=== PATIENT | female | born 1945 | race Caucasian/White ===

== ENCOUNTER 2018-10-04 10:37 | Inpatient (IN) | payer MEDICARE, SELFPAY ==
[2018-09-20 12:50] VITALS: BMI 39.4
[2018-10-04] VITALS (14 sets, daily range): BP systolic 98–164; BP diastolic 50–82; PULSE 53–79; RESP 12–22; TEMP 35.6–36.9; O2SAT 9–100; BMI 41.8
--- NOTE | 2018-10-04 06:00 | DI.RAD.S_ITS ---
PROCEDURE: XR PELVIS 1-2V INDICATIONS: right PRIYANK TECHNIQUE: 1 view of the lower pelvis acquired. [facility] LATERAL HIP RIGHT, 07/28/2018, 9:04. [facility], CR, XR PELVIS W LATERAL HIP RT, 09/30/2016, 14:33. FINDINGS: Bones: Patient is status post right hip arthroplasty, with hardware components in expected positions. The hip joint appears congruent. The visualized bony structures appear intact. Soft tissues: Overlying postoperative changes are noted. No suspicious soft tissue densities. IMPRESSION: Expected postoperative appearance of right hip arthroplasty Dictated by: Ryan Betancourt M.D. on 10/04/2018 at 16:41 Approved by: Ryan Betancourt M.D. on 10/04/2018 at 16:42
[2018-10-04] MEDS: LACTATED RINGERS 1,000 ML 42 ML IV ×2 (11:48→14:58)
[2018-10-04] MEDS: ACETAMINOPHEN 325 MG TABLET 975 MG PO (11:53)
[2018-10-04] MEDS: PREGABALIN 75 MG CAPSULE PO (11:54)
[2018-10-04] MEDS: CELECOXIB 200 MG CAPSULE PO (11:54)
--- NOTE | 2018-10-04 12:04 | SUR.PREOP ---
Lab currently here at bedside to draw stat lab per orders
[2018-10-04 12:32] LABS: BUN Creatinine Ratio 22.9 (6-22); Blood Urea Nitrogen 16 mg/dL (7-17); Calcium 9.2 mg/dL (8.4-10.2); Carbon Dioxide 30 mmol/L (22-32); Chloride 101 mmol/L (98-107); Estimated Glomerular Filt Rate > 60.0 mL/min (>60); Glucose 91 mg/dL (80-110); HEMOLYSIS < 15 (0-50); Potassium 3.5 mmol/L (3.4-5.1); Sodium 138 mmol/L (137-145)
--- NOTE | 2018-10-04 13:20 | PM.PREOP ---
Pre-operative Note Interval Note History & Physical reviewed/Exam performed by Physician: Yes Changes to H&P: No
[2018-10-04] MEDS: CEFAZOLIN 2 GM/100 ML FROZ.PIGGY IV ×2 (13:38→21:52)
--- NOTE | 2018-10-04 13:41 | SUR.OPER ---
Lateral on padded OR bed. Gel axillary roll. Arms secured on padded armboard with pillow supporting top arm. Padded hip positioner braces x4 - anterior and posterior chest and pelvis. Additional gel pad used anterior pelvis. Gel pad under bottom leg from knee to foot and secured with tape over sheet.
[2018-10-04] MEDS: BUPIVACAINE 0.25% W/ EPI 30 ML VIAL 60 ML INJ (14:07)
--- NOTE | 2018-10-04 15:35 | PM.OP.1 ---
Operative Date/Time/Diagnoses Date of procedure: 10/04/18 Time of procedure: 15:36 Pre-op diagnosis: Right hip degenerative joint disease Post-op diagnosis: same Procedure & Clinicians Procedure: Right total hip arthroplasty (CPT code 78885 with hearing aid assistant) Same procedure as scheduled: Yes Indications: Patient is an 73-year-old female with severe right hip DJD. The patient has pain with activities and at rest, limited ambulation and activity tolerance, difficulties with ADLs, and failure of conservative treatment. We have discussed the nature of condition, treatment options, risks and benefits, and patient elects to proceed with total hip arthroplasty and gives informed consent. Surgeon: Sean Bains Welder Machine Operator: Jagdish Griggs Anesthesia Type: General and Spinal Operative Notes Closure Type: primary Specimen(s): other (Rubbery, gelatinous, granulomatous appearing tissue was noted in the femoral canal adjacent to the medial calcar. Sent for micro) Prosthetic devices, grafts, tissues, transplants, or devices: Acetabulum: Barnes [employer]hew R3 acetabular component size 50 mm Femoral component: Barnes [employer]hew Anthology stem size 8 with standard offset Femoral head: 32 mm + 4 cobalt chrome Estimated Blood Loss (mL): 150 Blood products transfused: none Procedure in detail: After satisfaction induction of anesthetic, and administration of IV antibiotics, the patient was positioned in the lateral decubitus position with all bony prominences well padded and pelvic position secured using a hip vegetable loader machine operator positioning device. Right hip and lower extremity prepped and draped in the usual sterile fashion, 1st dose of intravenous tranexamic acid was administered, then a longitudinal incision was created centered over the greater trochanter and carried sharply through the skin and subcutaneous tissues down to the fascia daphne which was divided longitudinally and retracted with a Charnley retractor. External rotators visualize, cut, tagged, and retracted posteriorly, then the capsule was cut in a T-type fashion with the corners tagged and retracted. Hip was dislocated and femoral neck cut made according to preoperative templating. Acetabular retractors then placed, and the acetabular labrum and osteophytes were excised. The acetabulum was then sequentially reamed to 49 mm with an excellent circumferential ream and fit with the trial. The trial component was removed and a permanent size 50 mm Barnes [employer] Nephew R3 acetabular component was selected, positioned, and impacted with satisfactory position and fixation achieved. Permanent liner was then inserted with the elevated lip directed posteriorly. Soft tissue then removed off the lateral femoral neck in the lateral neck was entered using a box osteotome. T-handled reamers placed down the canal followed by sequential broaching to 8 with the final broach left in place for trial reduction which demonstrated excellent leg length, range of motion, and stability characteristics with a 32 mm + 4 trial ball. The trial and broach were removed, and a permanent size 8 Barnes [employer] Nephew Anthology stem was selected and inserted with excellent position and fixation achieved. Another trial reduction yielded the above characteristics so the trial ball was exchanged for a permanent 32 mm + 4 cobalt chrome ball. The hip was irrigated and reduced and excellent leg length range of motion and stability characteristics were achieved and maintained. Periarticular tissues were infiltrated with ropivacaine, Marcaine, and Toradol. The hip was copiously irrigated, and the capsule repaired with #2 Ethibond, and the piriformis was repaired back to the greater trochanter with the same. Fascia daphne closed with interrupted #1 Ethibond sutures, and the subcutaneous tissues were closed in 2 layers of 0 Vicryl and 2 0 Vicryl. Skin was closed with musa and sterile dressings applied. Second dose of tranexamic acid was administered intravenously, and the anesthetic was terminated. During broaching of the femur a gelatinous, granulomatous appearing mass of tissue was noted in the femoral canal adjacent to the medial calcar. This was excised without difficulty and sent to pathology. The surrounding bone appeared normal and the tissue was not particularly fixed to the femur. Complications: none Condition: stable Disposition: PACU Plan for aftercare: Patient will be admitted to the acute care [facility], and anticipate discharge on postop day 1-2 with follow-up in office in 10-14 days. Outpatient physical therapy will be arranged and patient will continue to observe posterior hip precautions. Patient will continue use of postoperative Lovenox for 10 days postop.
--- NOTE | 2018-10-04 15:43 | P.OP_ITS ---
Operative Date/Time/Diagnoses Date of procedure: 10/04/18 Time of procedure: 15:36 Pre-op diagnosis: Right hip degenerative joint disease Post-op diagnosis: same Procedure & Clinicians Procedure: Right total hip arthroplasty (CPT code 53088 with assistant general manager) Same procedure as scheduled: Yes Indications: Patient is an 73-year-old female with severe right hip DJD. The patient has pain with activities and at rest, limited ambulation and activity tolerance, difficulties with ADLs, and failure of conservative treatment. We have discussed the nature of condition, treatment options, risks and benefits, and patient elects to proceed with total hip arthroplasty and gives informed consent. Surgeon: Sean Bains Department Of Mathematics Chair: Jagdish Griggs Anesthesia Type: General and Spinal Operative Notes Closure Type: primary Specimen(s): other (Rubbery, gelatinous, granulomatous appearing tissue was noted in the femoral canal adjacent to the medial calcar. Sent for micro) Prosthetic devices, grafts, tissues, transplants, or devices: Acetabulum: Barnes [employer] Nephew R3 acetabular component size 50 mm Femoral component: Barnes [employer]hew Anthology stem size 8 with standard offset Femoral head: 32 mm + 4 cobalt chrome Estimated Blood Loss (mL): 150 Blood products transfused: none Procedure in detail: After satisfaction induction of anesthetic, and administration of IV antibiotics, the patient was positioned in the lateral decubitus position with all bony prominences well padded and pelvic position secured using a hip branch lending officer positioning device. Right hip and lower extremity prepped and draped in the usual sterile fashion, 1st dose of intravenous tranexamic acid was administered, then a longitudinal incision was created centered over the greater trochanter and carried sharply through the skin and subcutaneous tissues down to the fascia daphne which was divided longitudinally and retracted with a Charnley retractor. External rotators visualize, cut, tagged, and retracted posteriorly, then the capsule was cut in a T-type fashion with the corners tagged and retracted. Hip was dislocated and femoral neck cut made according to preoperative templating. Acetabular retractors then placed, and the acetabular labrum and osteophytes were excised. The acetabulum was then sequentially reamed to 49 mm with an excellent circumferential ream and fit with the trial. The trial component was removed and a permanent size 50 mm Barnes and Nephew R3 acetabular component was selected, positioned, and impacted with satisfactory position and fixation achieved. Permanent liner was then inserted with the elevated lip directed posteriorly. Soft tissue then removed off the lateral femoral neck in the lateral neck was entered using a box osteotome. T- handled reamers placed down the canal followed by sequential broaching to 8 with the final broach left in place for trial reduction which demonstrated excellent leg length, range of motion, and stability characteristics with a 32 mm + 4 trial ball. The trial and broach were removed, and a permanent size 8 Barnes [employer] Nephew Anthology stem was selected and inserted with excellent position and fixation achieved. Another trial reduction yielded the above characteristics so the trial ball was exchanged for a permanent 32 mm + 4 cobalt chrome ball. The hip was irrigated and reduced and excellent leg length range of motion and stability characteristics were achieved and maintained. Periarticular tissues were infiltrated with ropivacaine, Marcaine, and Toradol. The hip was copiously irrigated, and the capsule repaired with #2 Ethibond, and the piriformis was repaired back to the greater trochanter with the same. Fascia daphne closed with interrupted #1 Ethibond sutures, and the subcutaneous tissues were closed in 2 layers of 0 Vicryl and 2 0 Vicryl. Skin was closed with musa and sterile dressings applied. Second dose of tranexamic acid was administered intravenously, and the anesthetic was terminated. During broaching of the femur a gelatinous, granulomatous appearing mass of tissue was noted in the femoral canal adjacent to the medial calcar. This was excised without difficulty and sent to pathology. The surrounding bone appeared normal and the tissue was not particularly fixed to the femur. Complications: none Condition: stable Disposition: PACU Plan for aftercare: Patient will be admitted to the acute care [facility], and anticipate discharge on postop day 1-2 with follow-up in office in 10-14 days. Outpatient physical therapy will be arranged and patient will continue to observe posterior hip precautions. Patient will continue use of postoperative Lovenox for 10 days postop.
--- NOTE | 2018-10-04 16:02 | PM.CHAP ---
saw flag on chart. Nurse on floor said patient was in surgery recovery.
--- NOTE | 2018-10-04 16:24 | SUR.PHASEI ---
1606 Patient has been sleeping, arouses easily/oriented. Continues to deny pain or nausea. Dressing remains CDI. Report called to floor. Taken to room 225, bed down and locked; patient had large amount of yellow emesis upon arrival. Provided gown and bedding changed; realized that she had leaked urine so staff toxicologist and COMMUNICATION CONSULTANT relieved me of duty and continued to complete linen change, skin care, and put on a brief. Spouse at bedside. patient stated that she was no longer nauseated. Clothing bag and small personal bag to room. Skin warm and dry, resp unlabored throughout. Warm blankets given.
--- NOTE | 2018-10-04 16:30 | SUR.PHASEI ---
clarification: 2nd bag of IV fluid hung in the OR by anesthesia. 300 ml of 2nd bag infused prior to transfer.
--- NOTE | 2018-10-04 16:30 | PT.IPTN ---
Current Diagnoses Unilateral primary osteoarthritis, right hip (10/04/18) Unilateral primary osteoarthritis of first carpometacarpal joint, unspecified hand (10/04/18) Surgery Performed Operation Date: 10/04/18 12:45 Actual Procedures p Total Hip Arthroplasty(Right) - Sean Bains MD Physical Therapy Treatment Note M3 PT-IP Subjective Start: 10/04/18 16:30 Freq: NEEDED Status: Active Protocol: Document 10/04/18 16:30 (Rec: 10/04/18 16:30 [id number]) Subjective Physical Therapy Visit Type Type Administrative Note Visit Start Time 16:30 Notes Pt just arrived to AC unit but remain asleep. Reattempt PT tomorrow.
[2018-10-04] MEDS: LACTATED RINGERS 1,000 ML 125 ML IV (16:39)
[2018-10-04] MEDS: HYDROCODONE/ACET 5/325 TABLET 1 TAB PO ×2 (18:37→22:35)
[2018-10-04] MEDS: ASPIRIN EC 81 MG TABLET PO (21:52)
--- NOTE | 2018-10-04 23:26 | PC.NURSE ---
A&OX3, 97%RA. R.hip dressing cdi. pain controlled w/1 tab norco. CMS+. PP++. pt ambulated to the BSC, but unable to urinate. bladder scan 164cc. call light in reach. bed alarm active.
[2018-10-05] MEDS: LACTATED RINGERS 1,000 ML 125 ML IV (01:24)
[2018-10-05 05:05] VITALS: BP 145/61; PULSE 84; RESP 16; TEMP 36.7; O2SAT 97
[2018-10-05] MEDS: HYDROCODONE/ACET 5/325 TABLET 1 TAB PO ×2 (05:10→09:48)
[2018-10-05] MEDS: CEFAZOLIN 2 GM/100 ML FROZ.PIGGY IV (05:11)
[2018-10-05 06:03] LABS: Hematocrit 30.5 % (36-46); Hemoglobin 9.8 g/dL (12.0-16.0)
[2018-10-05 07:30] VITALS: BP 135/69; PULSE 65; RESP 16; TEMP 37.3; O2SAT 96
[2018-10-05] MEDS: ENOXAPARIN 40 MG/0.4 ML SYRINGE SUBCUT (09:46)
[2018-10-05] MEDS: ASPIRIN EC 81 MG TABLET PO (09:46)
--- NOTE | 2018-10-05 10:25 | P.DS_ITS ---
History of Present Illness Date Patient Seen: 10/05/18 Time Patient Seen: 10:22 Chief complaint: Right Total Hip Arthroplasty 16857 Narrative: Hospital day 2, postop day 1 following right posterior total hip arthroplasty by Dr. Bains. Patient remained stable. She has been ambulating to the bathroom. She has not had any physical therapy yet. She is scheduled to go to [facility] [place]. Pain controlled well with [place] 5/325 mg. Patient is a [facility] patient. she does anticipate going home today. Discharge Providers Date of admission: 10/04/18 10:37 Discharge Date: 10/05/18 Primary care physician: Charlene Sheppard MD Consults: 10/04/18 16:29 Consult to Discharge Planning Routine Comment: Consult to Physical Therapy Evaluate & Treat Comment: Physician Instructions: post op PRIYANK protocol Consult to Respiratory Therapy Evaluate & Treat Comment: Physician Instructions: Evaluate and treat Discharge provider: Mk Squires PA-C Summary Discharge Diagnosis: Status post right posterior total hip arthroplasty Hospital Course: Patient brought to hospital on 10/04/2018 for above-noted surgery. She remained stable postoperatively. Progressed with physical therapy. Ready for discharge home on postop day 1. Status at Discharge Cognitive/behavioral status at discharge: oriented Functional status at discharge: uses cane/walker Overall status at discharge: patient is progressing back to baseline Time Spent with Patient Less than 30 minutes Exam Vital Signs (past 8 hours): - 10/05/18 05:05 10/05/18 07:30 Temperature 98.1 F 99.1 F Pulse Rate 84 65 Respiratory Rate 16 16 Blood Pressure 145/61 H 135/69 Pulse Oximetry 97 96 Oxygen Delivery Method Room Air Oxygen Flow Rate 1 Narrative Exam Narrative: Alert, oriented no acute distress lying in bed. legs. Bulky dressing to right posterior hip is dry without drainage or inflammation. No calf pain or swelling. Pulses symmetrical. Objective Labs Result Diagrams: 10/05/18 05:16 10/04/18 12:05 Labs: Laboratory Results - last 24 hr 10/04/18 10/05/18 12:05 05:16 Hgb 9.8 L Hct 30.5 L Sodium 138 Potassium 3.5 Chloride 101 Carbon Dioxide 30 BUN 16 Creatinine 0.70 Estimated GFR > 60.0 BUN/Creatinine Ratio 22.9 H Glucose 91 Calcium 9.2 Discharge Plan Discharge Plan Patient Disposition: Home Discharge comment: Discharge home today after cleared by PT. She has a [facility] patient and has postoperative pain meds at home. She is scheduled for physical therapy at [facility] [place]. Posterior hip precautions. Discharge Med Rec/Prescriptions Prescriptions: New enoxaparin [Lovenox] 40 mg/0.4 mL Syringe 40 mg subcut DAILY Qty: 9 RF: 0 Continued hydrochlorothiazide 50 MG tablet 50 mg PO QDAY Qty: 0 RF: 0 aspirin 81 MG tablet,delayed release (DR/EC) 81 mg PO BEDTIME Qty: 0 RF: 0 potassium chloride 10 MEQ tablet extended release 10 meq PO BID Qty: 0 RF: 0 cetirizine 10 MG tablet 10 mg PO QDAY Qty: 0 RF: 0 omeprazole 20 MG tablet,delayed release (DR/EC) 20 mg PO QAM Qty: 0 RF: 0 ferrous sulfate [iron] 325 mg (65 mg iron) Tablet 325 mg PO DAILY RF: 0 naproxen sodium 220 mg Tablet 220 mg PO BID RF: 0 Follow up/Referrals: Charlene Sheppard MD [Primary Care Provider] - Provider Discharge Instructions Diet: Diet as Tolerated Activity: Ambulate as tolerated. Use walker as needed. posterior total hip arthroplasty protocol x6 weeks postop. Cold/Heat Therapy: Cold pack to right hip as needed. Skin/Wound/Dressing Care Dressing: Keep CovRsite dressing in place until postop visit. Visit Report/Discharge Packet Instructions: DI for Hip Replacement Discharge Data Primary Care Provider: Charlene Sheppard Attending Provider: Sean Bains Admit Date/Time: 10/04/18 10:37
--- NOTE | 2018-10-05 11:00 | PT.IIE ---
Current Diagnoses Unilateral primary osteoarthritis, right hip (10/04/18) Unilateral primary osteoarthritis of first carpometacarpal joint, unspecified hand (10/04/18) Surgery Performed Operation Date: 10/04/18 12:45 Actual Procedures p Total Hip Arthroplasty(Right) - Sean Bains MD Surgical History (Last Reviewed 10/05/18 @ 08:27 by Nathalia Garcia, PT) History of bilateral knee arthroplasty (Acute) History of carpal tunnel release (Acute) Hx of arthroscopy of left knee (Acute) Hx of breast biopsy (Acute ~1964) Hx of thumb surgery (Acute 10/29/17) Hx of tonsillectomy (Acute) Medical History (Last Reviewed 10/05/18 @ 08:26 by Nathalia Garcia, PT) Bilateral thumb pain (Acute) Colon polyps (Acute) Diverticulosis (Acute) Easy bruisability (Acute) Edema (Acute) Endocervical polyp (Acute) HTN (hypertension) (Acute) Hyperlipidemia (Acute) Osteoarthritis (Acute) Reflux esophagitis (Acute) Rheumatoid arthritis (Acute ~08/2018) Seasonal allergies (Acute) Uterine fibroid (Acute) Physical Therapy Inpatient Evaluation/Re-Eval M1 PT/OT-IP Prior Functional Status Start: 10/04/18 16:30 Freq: NEEDED Status: Active Protocol: Document 10/05/18 11:00 DLM (Rec: 10/05/18 12:32 DLM [email or web address]) Medical Review Prior Functional Status Medical History Reviewed Yes Diet/Fluid Consistency Regular Communication WNL Mobility and Gait Independent without device, she sleeps in a power recliner due to joint pain when she sleeps in bed Activities of Daily Living and IADL's Independent Social History Household Members spouse Living Arrangements House Number of Floors (Floors) One Floor Number of Stairs To Enter/Railing? 0 Home Environment High Toilet Walk in Shower Home Equipment Front Wheel Walker Straight Cane Shower Seat with Backrest Grab Bars Near Toilet Grab Bars In Shower Employment Status Retired Additional Social History Comment Lives in a 55 and older community, house is ADA certified, does not have to take care of yard (LILIANA manages the yard), she plans to continue to sleep in her power recliner when she gets home M2 PT-IP Current Condition Start: 10/04/18 16:30 Freq: NEEDED Status: Active Protocol: Document 10/05/18 11:00 DLM (Rec: 10/05/18 12:32 DLM [email or web address]) Physical Therapy Current Condition Current Condition Evaluation Date 10/05/18 Treatment Diagnosis right PRIYANK, posterior approach Onset Date 10/04/18 Precautions Posterior Hip Precautions No Hip Flexion > 90 degrees No Hip Internal Rotation No Hip Adduction Weight Bearing Status Weight Bearing Status Weight Bear as Tolerated M3 PT-IP Subjective Start: 10/04/18 16:30 Freq: NEEDED Status: Active Protocol: Document 10/05/18 11:00 DLM (Rec: 10/05/18 12:32 DLM [email or web address]) Subjective Physical Therapy Visit Type Type Initial Evaluation Visit Start Time 10:20 Visit Stop Time 11:00 Total Visit Minutes 40 Number of RAILROAD SIGNAL OPERATOR Visits 0 Physical Therapy Visit Comments Patient Comments It is too painful to get in/ out of bed, her Spouse can help her at home as needed Patient Goals go home today Therapy Pain Assessment Pain When Pain Assessed During Mobility Pain Present Pain Present Pain Reported Location Right Hip Intensity 3 Scale Used Numeric (1 - 10) Description Aching Tender Pain Behaviors Guarding Pain Management Techniques Apply Cold Re-positioning Timing of Activity with Medications M4 PT-IP Mobility and Gait Start: 10/04/18 16:30 Freq: NEEDED Status: Active Protocol: Document 10/05/18 11:00 DLM (Rec: 10/05/18 12:32 DLM [email or web address]) PT-Bed Mobility Assessment Scooting Scooting to Edge of Bed Independent PT-Transfer Assessment Sit to and From Stand Sit to and from Stand Standby Assistance Use of Upper Extremities Equipment Transfer Assistive Device Gait Belt Front Wheeled Walker Transfers Transfer Destination Chair Transfer Technique Stand Step Pivot Transfer Ability Level of Assist Standby Assistance Use of Upper Extremities Comments Mobility Comments pt declined to get in/out of bed due to too painful when she did it with nursing, she plans to sleep in recliner that is at the end of her couch (power recliner) Gait Assessment Gait Gait Assistance Required: Standby Assistance Distance (Feet) 50 Able to Maintain Weight Bearing Status Yes During Gait Assistive Devices Assistive Device Gait Belt Front Wheeled Walker Gait Deviations General Gait Pattern Antalgic Decreased Stride Length Factors Limiting Gait Function Factors Limiting Gait Function Decreased Activity Tolerance Decreased Sensation Pain Comments Gait Comments she was fatigued and short of breath after gait but recoved well with seated rest break, she has difficulty lifting right foot off floor for normal stride, she describes weakness trying to lift her foot off the floor, pt uses an increased left side lean to swing right LE through for functional stepping Stair Climbing Assessment Comments Stair Climbing Comments pt has no steps at home PT-Balance Assessment Sitting Balance and Reactions Static Sitting Balance Ability Normal Dynamic Sitting Balance Ability Normal Standing Balance and Reactions Static Standing Balance Ability Good Dynamic Standing Balance Ability Good Device Used FWW M5 PT-IP Objective Assessments Start: 10/04/18 16:30 Freq: NEEDED Status: Active Protocol: Document 10/05/18 11:00 DLM (Rec: 10/05/18 12:32 DLM [email or web address]) Orientation Orientation/Cognition Level of Alertness Alert Orientation Name Age Birthday Month Date Year Day of Week Place Situation Language Function Ability No Deficits Noted Safety Awareness Understands Safety Issues Memory Description No Deficits Noted Gross Range of Motion Upper Extremity ROM Assessment Within Functional Limits Lower Extremity ROM Assessment Right Impaired Impairments post-op precautions and pain limiting right LE Strength Upper Extremity Strength Assessment Within Functional Limits Shoulder hx of shoulder pain but none reported today Lower Extremity Strength Assessment Right Impaired Hip hip flexion 2/5 Knee knee ext 3-/5 Ankle DF 4/5 Coordination Assessment Gross Coordination Gross Coordination WNL Sensation Assessment Sensation Gross Sensation Right LE Impaired Sensation Description Numbness Comments Sensation Comments mild numbness reported in right hip area Muscle Tone Muscle Tone WNL Yes M6 PT-IP Treatment Start: 10/04/18 16:30 Freq: NEEDED Status: Active Protocol: Document 10/05/18 11:00 DLM (Rec: 10/05/18 12:32 DLM [email or web address]) Physical Therapy Treatment Exercises Exercises Ankle Pumps Gluteal Sets Quad Sets Heel Slides Supine Hip Abduction Education Education Provided Precautions Weight Bearing Status Post-Op Packet Safety Equipment Issued Equipment Type and Company she has her FWW from home in her room M7 PT-IP Assessment and Plan Start: 10/04/18 16:30 Freq: NEEDED Status: Active Protocol: Document 10/05/18 11:00 DLM (Rec: 10/05/18 12:32 DLM [email or web address]) PT Summary Assessment and Plan Potential Rehabilitation Potential Good Status of Condition at Evaluation Evolving Summary Impairments Pain ROM Strength Balance Bed Mobility Transfers Gait Activity Tolerance Progress Towards Goals Safe For Discharge Assessment Summary Keya is alert and willing to work with physical therapy. She tolerates short distances of gait with fWW which are functional for the household. She describes having more weakness in right LE than pain today. She reports having a supportive Spouse at home who can assist her. She has out-pt PT scheduled to start on Thursday. She is eager to return home today. She appears safe to discharge home when medically cleared. Goals Transfer Goal Independent Front Wheeled Walker Gait Goal Independent Front Wheel Walker Gait Distance 100 feet Days to Meet Goals 2 Frequency of Treatment Frequency Of Treatment Twice a Day Treatment Plan Physical Therapy Treatment Plan Transfer Training Gait Training Therapeutic Exercise Post Op Education Discharge Planning Hot or Cold Pack Other Recommendations and Next Treatment pt does not want to work on Focus bed mobility since not going to sleep in bed at home Recommendations To Nursing Amount of Assist Needed Standby Assistance Discharge Recommendations PT Discharge Recommendations Home with Assistance Outpatient PT
--- NOTE | 2018-10-05 11:14 | PC.NURSE ---
Pt in Radiology for MRI. Transferred via w/c.
--- NOTE | 2018-10-05 11:34 | PM.CHAP ---
chaplain flag. Laura is heading home soon, and happy with the outcome of her surgery.
[2018-10-05 11:44] VITALS: BP 133/63; PULSE 65; RESP 18; TEMP 37.2; O2SAT 92
--- NOTE | 2018-10-05 12:54 | PC.NURSE ---
Pt ready for discharge home with Spouse. Went over d/c instructions with Pt - discussed d/c meds, time of last dose, reviewed stroke education and posterior hip precautions. Pt denies further questions and is ready to be taken out when spouse is ready with the car.
--- NOTE | 2018-10-05 13:17 | CM.DANOTE ---
Discharge Planning/Care Management DCP: assessement: case received and discussed in Team Rounds. Ortho SHARONA Squires noted that pt would be d/c'd home today when cleared by PT. Pt is a 73 year old female whoa admitted yesterday fro a planned R PRIYANK/posterior. Surgeon: Dr. Bains Payer: [facility] M[facility] ADV Pt arrived late to floor from PACU yesterday. First PT session was today. Went to room about 1230 to meet with pt. She was found up and dressed, sitting in a w/c and waiting for her to return from lunch. Introduced self and role. She and RN Naye confirmed she was all ready to go as soon as her got back. Pt confirmed she is comfortable going home today and said she had a good session with therapy. She has OUTPT PT set up at [facility]. CM Discharge Assessment Start: 10/05/18 13:16 Freq: Status: Discharge Protocol: Document 10/05/18 13:16 ITV (Rec: 10/05/18 13:17 ITV [email or web address]) Discharge Planning Assessment Advance Directives? Yes Advance Directives on File No History Provided By Patient Medical Record Prior Living Arrangements House Household Members spouse Review Status In Process Next Review Type Continued Stay Review Pre-Anesthesia Assessment Start: 09/20/18 12:50 Freq: Status: Discharge Protocol: Document 09/20/18 12:50 CAB (Rec: 09/20/18 13:31 CAB [id number]) Pre-Anesthesia Assessment Patient Also Known As Rae (AKA) Patient Information Reviewed Via Phone Assessment Assessment Completed With Patient Diagnostic Results CBC EKG Primary Care Provider Charlene Sheppard Seen Specialist in Last 12 Months Yes Specialist Seen Orthopedist Other Comment Insulation Packer Primary Language Guamanian Contract Negotiation Manager Required No Height 170.18 cm Weight 114.305 kg Body Mass Index (BMI) 39.4 Hearing Ability Normal Visual Assist Glasses Dentition Type Teeth, Natural Present Barriers to Learning None Other Aids No Hx Anesthesia Reactions No Hx Family Anesthesia Reaction No Hx Malignant Hyperthermia No Hx Blood Transfusions No Anesthesia Review Requested No Golf Sales Manager No alcohol intake current alcohol intake frequency holidays/special occasions only Smoking Status Never smoker Substance Use Type does not use Pain Present Pain Reported Musculoskeletal Symptoms Abnormal Gait Back Pain Difficulty Walking Limited Range of Motion Neck Pain History of Falling (Recent or History of No ) Patient is completely paralyzed or No completely immobile Prosthesis or Orthotic Device Cane Front Wheel Walker Mental Status Oriented to own ability Is patient on oxygen? No Does patient have ZEE/SOB No Hx Sleep Apnea No Currently Taking a Beta Marshall No Can You Climb a Flight of Stairs Without Yes SOB Hx Chest Pain No Hx SOB No Hx Syncope or Dizziness No Anti-Coagulant Therapy No Has a Fuse Assembler No Cardiac Testing Yes: ECHO 09/20/18 - Pre-op Hx Pacemaker/ICD No Pacemaker Rep Required? No Cardiac Clearance Received Not Applicable Comment Echo scanned to record Diet Type At Home Regular dysphagia No Bladder Pattern Incontinent Urgency Urinary Catheter Present No Hx Urinary Self Catheterization No Diabetes No Patient No Lactating No Hx Drug Resistant Organism No Presence of External or Internal Medical No Devices Have you traveled outside the [facility] in the last 30 days? Marital Status Lives With spouse Prior Living Arrangements House Number of Floors (Floors) One Floor Number of Stairs To Enter/Railing? None Support System Spouse Patient Discharge Plan Description Return Home Comment Pt advised 1 night length of stay per surgeon's office Feels Safe in Current Environment Yes Been Physically Hurt or Threatened By a No Person in Current Environment Do you have thoughts of harming yourself None or others? Are you currently considering suicide? No Do you have a plan to hurt yourself or No Plan others? Do You Have Any Spiritual Beliefs That No May Affect Your HC Choices? Do You Have Any Cultural Practices That No May Affect Your HC Choices? Spiritual Referral In-House Furniture Shampooer Comment Anabaptist Who Can We Speak to About Patient's Care Family, friends Identifying Code for Release of Patient Declines to issue Information Health Care Proxy/Next of Kin Tremayne () Christiano (daughter ) Health Care Proxy Phone Number Tremayne: [phone] Christiano: Emergency Contact Name Tremayne () Christiano (daughter ) Emergency Contact Phone Number Tremayne: [phone] Christiano: Advance Directives? Yes Advance Directives on File No Requested Patient Bring Advanced Yes Directives DOS Power of Certified Health Education Specialist No PAC Instructions Do not shave/clip surgical site Durable medical equipment Medications to take/avoid Nasal antibiotic Post-op transportation Pre-surgical wash Sturdy shoes/comfortable clothes Do not bring valuables and remove jewelry
--- NOTE | 2018-10-07 | PATH_ITS ---
[facility] [place] Accession Number: [id number] . 01 Material submitted: . MEDIAL CALCAR PROXIMAL FEMUR . 02 Diagnosis: Tissue Designated Medial Calcar Proximal Femur: Fibrofatty tissue with rare slivers of viable bone. Soft tissue involved with acute and chronic inflammation, edema, and prominent recent soft tissue hemorrhage. I/10/06/2018 . 02 Electronically signed: . Gilberto Gillespie MD, Pathologist NPI- [id number] . 01 Gross description: . Received in formalin, labeled tissue medial calcar proximal femur, is a piece of solorzano-white and red-brown rubbery semi-translucent tissue (3.5 x 2.0 x 1.0 cm). The resection margin is inked black. Chef German serial sections are submitted in cassettes A1 and A2. ([id number]) /MRV . 02 Pathologist provided ICD-10: Z96.641 . 02 CPT . 723876 Specimen Comment: A duplicate report has been generated due to demographic updates. Performed at: 01 [facility] [address], [place], [place] [id number] MD Eulogio Santana MD Phone: [phone] Performed at: 02 [facility] [address] [place], [place] [id number] MD Kaylee Lyon MD Phone: [phone]
== END 2018-10-05 13:05 | disposition home or self-care (01) | DRG 470 ==
PROVIDERS: Anesthesiology; Admitting Provider Orthopaedic Surgery; Family Provider Internal Medicine Geriatric Medicine; PCP Internal Medicine Geriatric Medicine; Visit Provider Orthopaedic Surgery
PROC: 0SR90JZ Replacement of Right Hip Joint with Synthetic Substitute, Open Approach (ICD-10-PCS; CPT 27130; principal; 2018-10-04 12:45)
DX: M16.11 Unilateral primary osteoarthritis, right hip (principal); M06.9 Rheumatoid arthritis, unspecified; M89.9 Disorder of bone, unspecified
CPT/HCPCS: 36415; 72170; 80048; 85014; 85018; 94760; 97110; 97162; C1776; J0690; J1650; J2250; J2704; J3010